=== PATIENT | female | born 1985 | race Caucasian/White ===

== ENCOUNTER → 2021-08-16 11:14 | Outpatient (CLI) | payer OTHER, SELFPAY ==
--- NOTE | 2021-08-16 | DI.RAD.S_ITS ---
PROCEDURE: FL BARIUM SWALLOW W SPEECH INDICATIONS: Dysphagia, unspecified COMPARISON: None. TECHNIQUE: Examination was conducted in conjunction with speech pathology per standard protocol. In the lateral projection, filming was performed of the patient swallowing. AP projection filming may also be performed with patient swallowing. COMPARISON: FINDINGS: Function: The oral preparatory phase appears normal, with proper containment. The subsequent oral propulsive phase, pharyngeal phase, and esophageal phase of swallowing also appear normal with all proffered substances. No laryngotracheal penetration or aspiration. No pathologic vallecular pooling. 13 millimeter barium tablet rapidly passed from the oral cavity to the stomach. Morphology: No cricopharyngeal bar is identified. No cervical esophageal webs. No Zenker's diverticulum. No strictures. IMPRESSION: Normal examination. Dictated by: Shasha Castellanos MD, PhD on 08/16/2021 at 14:38 Approved by: Shasha Castellanos MD, PhD on 08/16/2021 at 14:38
--- NOTE | 2021-08-16 17:10 | ST.SWALLOW ---
Visit Care Team Role Provider Type Lino Sanchez MD Attending Provider Physician Referring Provider Specialty: Ear, Nose, Throat Address: [address] [place] [address], [id number] Email: [email or web address] Modified Barium Swallow Study OBSTETRICS TECHNICIAN Modified Barium Swallow Study Start: 08/16/21 14:05 Freq: Status: Active Protocol: Document 08/16/21 14:10 LNK (Rec: 08/16/21 14:32 [id number] [id number]) Modified Barium Swallow Study Total Time Visit Start Time 11:30 Visit Stop Time 12:00 Total Visit Minutes 30 Referral Referring Physician SULEMA Rausch Reason for Referral difficulty with swallowing Setting Setting Outpatient Care Patient Information Identification Type Name,Date of Patient History Pt presented for a Modified Barium Swallow Study (MBSS) at the referral of Dr. Sanchez ENT. According to the pt, approximately 3 months ago, she had a choking experience during which she could not breathe, needing assistance fom her sister to dislodge the food (hamburger). Since that time, she reports she experiences a sensation of globus and increasing anxiety. She will eventually force herself to throw up in order to clear the sensation. She noted that she has difficulty with swallowing breads, spagetti, tomatoes, pizza, and chocolate. When she eats foods like these and or when she experiences difficulty swallowing, she stated she has a lot of mucous and it clogs me up. She has been drinking a lot water when she feels the foods stick in her throat, which, she reported, helps the food go down. She reports no difficulty with liquids. Pt also reported that she has heartburn a lot for which she takes Tums. She has not seen a physician for her heartburn. Subjective Observations Pt was seated in the fluoroscopy chair. Directions and procedure were described for her after which she agreed to proceed. Patient Positioning Position View Lat-A/P Imaging Lateral View Textures Administered Trials Presented Thin Liquid via Spoon,Thin Liquid via Cup,Pudding Thick Liquid via Spoon,Regular Textures Oral Phase Source: MBSIMP (TM) (C) Bolus Specific Scoring Grid Lip Closure No Impairment (WNL) Tongue Control During Bolus Hold No Impairment (WNL) Bolus Prep/Mastication No Impairment (WNL) Bolus Transport/Lingual Motion No Impairment (WNL) A/P Lingual Propulsion Delay No Oral Residue No Impairment (WNL) Residue Clearing No Impairment (WNL) Nasal Regurgitation No Additional Oral Phase Observations OME indicated structures and function to be WNL. P't dentition was natural in good hygiene. Diadochokineses was WNL. Pharyngeal Phase Source: MBSIMP (TM) (C) Bolus Specific Scoring Grid Delayed Initiation of Pharyngeal Swallow No Soft Palate Elevation No Impairment (WNL) Tongue Base Strength/Range of Motion Minimal Impairment Residue Along the Tongue Base No Laryngeal Elevation Mild Impairment Anterior Hyoid Movement Mild Impairment Epiglottic Range of Motion No Impairment (WNL) Vallecular Residue trace to minimal Clearance of Vallecular Residue WFL Laryngeal Vestibular Closure WFL Pharyngeal Stripping Wave No Impairment (WNL) Posterior Pharyngeal Wall Residue No Upper Esophageal Sphincter Opening Mild Impairment Residue in the Pyriform Sinuses No Esophageal Clearance Upright Position Mild Impairment Pharyngoesophageal Backflow Observed No Additional Pharyngeal Phase Observations Pt's pharyngeal phase of swallowing was essentially WFL with a slight reduction was of strength noted at pt's base of the tongue resulting in minimal residue within the valeculla. Spontaneous subsequent swallows cleared valecullar residue. Pt also demonstrated mildly reduced larygeal elevation and hyoid movement impacting the elevation of the UES. Reduced hyolaryngeal elevation directly impacts the opening size and duration of the UES. Epiglottic version was complete with a good seal of the airway. Cervical osteophytes were observed to narrow and alter the bolus flow without impeding the flow to the stomach. Pt demonstrated a very sensitive and hyperactive gag response to the paste and the cookie with paste trials, which increased her anxiety. She did complete the MBSS with minimal difficulty. A/P View Textures Administered Trials Presented Barium Tablet A/P View Observations Pharyngeal Contraction No Impairment (WNL) Vocal Fold Function Good Esophageal Function No Impairment (WNL) Esophageal Clearance Upright Position No Impairment (WNL) Clinical Impressions Dysphagia Type Mild dysphagia Findings Pt presents with mild pharyngeal dysphagia complicated by anxiety related to her swallowing. She has been drinking more water with her meals and says that the water helps reduce the sensation of globus. Mildly reduced hyolaryngeal elevation appears to be affecting the opening and duration of the UES, which may account for the pt thinking that something is stuck. No observation of slowness with esophageal emptying, no stasis was observed. Minimal residue within the pharynx was noted and cleared spontaneously. Base of tongue exercises could aid in hyolaryngeal elevation and the UES opening. Additionally, a referral to GI for evaluation of possible GERD is recommended. GERD could be related to the globus sensation as well. Finally, it may be that the pt's initial experience with choking and needing assistance has increased her anxiety with eating. Possible referral for counseling may help the pt as well. Rehabilitation Potential Good Patient Appropriate for Therapy Yes Recommendations Diet Comments Continue current diet Aspiration Precautions Recommended Precautions Alternate Liquids/Solids,Small Bites/Sips Treatment Plan Therapy Recommendations Outpatient Speech Therapy Recommended Referrals Primary Care Physician,GI Consult Additional Recommended Referrals counseling
--- NOTE | 2021-08-16 17:12 | ST.OPPOC ---
Physical, Occupational & Speech Therapy At [facility] Visit Care Team Role Provider Type Lino Sanchez MD Attending Provider Physician Referring Provider Address: [address] [place], [place] [address], [address] Speech Pathology Plan of Care Patient History Pt presented for a Modified Barium Swallow Study (MBSS) at the referral of Dr. Sanchez, ENT. According to the pt, approximately 3 months ago, she had a choking experience during which she could not breathe, needing assistance fom her sister to dislodge the food (hamburger). Since that time, she reports she experiences a sensation of globus and increasing anxiety. She will eventually force herself to throw up in order to clear the sensation. She noted that she has difficulty with swallowing breads, spagetti, tomatoes, pizza, and chocolate. When she eats foods like these and or when she experiences difficulty swallowing, she stated she has a lot of mucous and it clogs me up. She has been drinking a lot water when she feels the foods stick in her throat, which, she reported, helps the food go down. She reports no difficulty with liquids. Pt also reported that she has heartburn a lot for which she takes Tums. She has not seen a physician for her heartburn. Electronically Signed by: LUIS Weinstein 08/16/21 [id number] Please Sign and Return: I have reviewed this Plan of Care and certify that the skilled therapy services above are required to meet the patient?s needs. Physician Signature Date Printed Name and Credentials Clinical Instructor Signature Printed Name and Credentials
== END ==
PROVIDERS: Referring Provider Otolaryngology; Visit Provider Otolaryngology
DX: R13.10 Dysphagia, unspecified (principal)
CPT/HCPCS: 74230; 92611

== ENCOUNTER 2022-04-20 06:38 | Emergency (ER) | payer OTHER, SELFPAY ==
[2022-04-20] VITALS (9 sets, daily range): BP systolic 127–170; BP diastolic 59–89; PULSE 91–107; RESP 17; TEMP 36.7; O2SAT 92–96; BMI 49.6
[2022-04-20 07:15] LABS: Alanine Aminotransferase 36 IU/L (<35); Albumin 4.7 g/dL (3.5-5.0); Albumin Globulin Ratio 1.4 (1.0-2.8); Alkaline Phosphatase 57 U/L (38-126); Aspartate Aminotransferase 33 IU/L (14-36); BUN Creatinine Ratio 15.5 (6-22); Bilirubin Total 0.7 mg/dL (0.2-1.3); Blood Urea Nitrogen 11 mg/dL (7-17); Calcium 8.8 mg/dL (8.4-10.2); Carbon Dioxide 23 mmol/L (22-32); Chloride 104 mmol/L (98-107); Estimated Glomerular Filt Rate > 60 mL/min (>60); Globulin 3.3 g/dL (1.7-4.1); Glucose 128 mg/dL (70-100); HEMOLYSIS < 15 (0-50); Lipase 72 U/L (23-300); Potassium 3.9 mmol/L (3.4-5.1); Sodium 140 mmol/L (137-145)
--- NOTE | 2022-04-20 07:31 | ED.NAVMDI ---
HPI - Nausea/Vomiting/Diarrhea General Chief complaint: Nausea/Vomiting/Diarrhea Stated complaint: N/V/D, cough, chills, no food since monday Time Seen by Provider: 04/20/22 07:20 Source: patient Mode of arrival: Ambulatory Limitations: no limitations History of Present Illness HPI Narrative: The patient has been ill for 3 days. She presents with abdominal pain, nausea, vomiting diarrhea. She last had emesis was after arrival here. She has headache, no sore throat, no cough or dyspnea associated with the headache. She has no fever or chills. She does not complain of dyspnea or chest discomfort. She is status post cholecystectomy. She takes Zantac for dyspepsia. She has no urinary symptoms. She has no back pain, dysuria or hematuria. She is currently on her menstrual cycle. She does have urine output. She has not been around others with similar complaints. Related Data Previous Rx's Medication Instructions Recorded ibuprofen 600 mg tablet 600 mg PO Q6-8H PRN pain #60 tabs 04/20/22 ondansetron 4 mg disintegrating 4 mg PO Q4H PRN nausea and 04/20/22 tablet vomiting 5 days #20 tabs Allergies Allergy/AdvReac Type Severity Reaction Status Date / Time No Known Drug Allergies Allergy Verified 04/20/22 06:57 Review of Systems Constitutional Constitutional: Denies anorexia, Reports body ache(s), Denies chills, Reports fatigue, Denies fever(s) and Reports headache(s) Eyes Eyes: Denies blurry vision ENT Ears, Nose, Mouth, and Throat: Denies vertigo, Denies dizziness and Reports headache(s) Comments: No rhinorrhea, no sore throat, no ear discomfort. Cardiovascular Cardiovascular: Denies chest pain, Denies rapid heart rate and Denies dyspnea Respiratory Respiratory: Denies chest congestion, Denies cough and Denies dyspnea Gastrointestinal Gastrointestinal: Reports as per HPI Genitourinary Genitourinary: Reports as per HPI Musculoskeletal Musculoskeletal: Denies arthralgias and Denies back pain Integumentary/Breasts Skin/Breast: Denies lesions and Denies rash Neurologic Neurologic: Denies confusion, Denies vertigo, Denies dizziness and Reports headache(s) Psychiatric Psychiatric: Denies confusion Endocrine Endocrine: Reports fatigue Hematologic/Lymphatic On Anticoagulants: No Patient History Medical History (Updated 04/20/22 @ 12:26 by Terence Smith MD) GERD (gastroesophageal reflux disease) Surgical History (Updated 04/20/22 @ 07:38 by Terence Smith MD) S/P cholecystectomy Social History Smoking Status: Current some day smoker Smoking Status: Current some day smoker alcohol intake frequency: 0-2 drinks per day Substance Use Type: does not use Exam Initial Vital Signs Initial Vital Signs: Vital Signs Temperature 98.1 F 04/20/22 06:54 Pulse Rate 107 H 04/20/22 06:54 Respiratory Rate 17 04/20/22 06:54 Blood Pressure 170/89 H 04/20/22 06:54 Pulse Oximetry 94 04/20/22 06:54 Oxygen Delivery Method 04/20/22 06:54 Const General: cooperative and ill appearing Nutritional Appearance: obese HENMT Head: normal to inspection, normocephalic and atraumatic Mouth: oral mucosae normal Throat: posterior oropharynx normal Eyes General: Yes appearance normal, both eyes and all related structures Neck Neck: No lymphadenopathy Resp Effort & Inspection: normal respiratory effort Auscultation: clear to auscultation bilaterally Percussion: percussion normal Cardio Palpation: normal PMI Rate: regular rate Rhythm: regular rhythm Heart Sounds: S1 normal, S2 normal, no click, no murmurs and no rubs GI Inspection: normal to inspection Palpation: soft and tender (Mild RUQ tenderness without guarding rebound.) Auscultation: normal bowel sounds Back/Spine/Pelvis Back: No CVA tenderness Skin General: no rashes or lesions noted Neuro General: patient alert, patient awake, patient oriented x3 and no focal motor deficits Psych Appearance: grossly normal Course Course Course Narrative: Nausea, vomiting improved with IV fluids and Zofran. She is feeling significant better. CT discovered a 5.0 x 6.5 cm left ovarian cyst. Patient is clinically improved to discharge. She is discharged with Zofran. Motion should be used for abdominal pain. She is advised to follow-up with PCM for further evaluation of the ovarian cyst. Orders Ordered: Discontinued Medications Sodium Chloride (Normal Saline 0.9%) 500 mls @ 1,000 mls/hr IV BOLUS PRN PRN Reason: Fluid replacement Sodium Chloride (Normal Saline 0.9%) 1,000 mls @ 1,000 mls/hr IV BOLUS ONE Stop: 04/20/22 08:38 Last Infusion: 04/20/22 09:28 Dose: 0 mls/hr Documented By: Admin: 04/20/22 07:40 Dose: 1,000 mls/hr Documented By: DIEUDONNE Sodium Chloride (Normal Saline 0.9%) 1,000 mls @ 1,000 mls/hr IV BOLUS PRN PRN Reason: Fluid replacement Last Infusion: 04/20/22 11:50 Dose: 0 mls/hr Documented By: Admin: 04/20/22 10:20 Dose: 1,000 mls/hr Documented By: DIEUDONNE Ketorolac Tromethamine (Ketorolac 30 Mg/Ml Vial) 30 mg IV NOW ONE Stop: 04/20/22 10:01 Last Admin: 04/20/22 10:17 Dose: 30 mg Documented By: DIEUDONNE Ondansetron HCl (Ondansetron 4 Mg/2 Ml Inj) 4 mg IV NOW ONE Stop: 04/20/22 07:30 Last Admin: 04/20/22 07:38 Dose: 4 mg Documented By: [facility] Vital Signs Vital signs: Vital Signs - 8 hr 04/20/22 06:54 Temperature 98.1 F Pulse Rate 107 H Respiratory Rate 17 Blood Pressure 170/89 H Pulse Oximetry 94 Oxygen Delivery Method Room Air MDM - Nausea/Vomiting/Diarrhea Lab Data Result diagrams: 04/20/22 06:55 04/20/22 06:55 Labs: Lab Results 04/20/22 04/20/22 Range/Units 06:55 06:55 WBC 4.7 (4.5-11.0) X10^3/uL RBC 4.99 (4.0-5.2) X10^6/uL Hgb 12.9 (12.0-16.0) g/dL Hct 38.8 (36-46) % MCV 77.7 L (80-100) fL MCH 25.8 L (26-34) PG MCHC 33.2 (30-36) % RDW 14.3 (11.6-14.8) % Plt Count 222 (150-400) X10^3/uL Neut % (Auto) 75.9 H (50-75) % Lymph % (Auto) 11.1 L (25-40) % [place] % (Auto) 11.1 (3-14) % Eos % (Auto) 1.7 L (2-4) % Baso % (Auto) 0.2 (0-2) % Neut # (Auto) 3500 (8508-2374) /uL Lymph # (Auto) 500 L (8567-0582) /uL [place] # (Auto) 500 (0-900) /uL Eos # (Auto) 100 (0-450) /uL Baso # (Auto) 0 (0-100) /uL Sodium 140 (137-145) mmol/L Potassium 3.9 (3.4-5.1) mmol/L Chloride 104 (98-107) mmol/L Carbon Dioxide 23 (22-32) mmol/L BUN 11 (7-17) mg/dL Creatinine 0.71 (0.52-1.04) mg/dL Estimated GFR > 60 (>60) mL/min BUN/Creatinine Ratio 15.5 (6-22) Glucose 128 H (70-100) mg/dL Calcium 8.8 (8.4-10.2) mg/dL Total Bilirubin 0.7 (0.2-1.3) mg/dL AST 33 (14-36) IU/L ALT 36 H (<35) IU/L Alkaline Phosphatase 57 (38-126) U/L Total Protein 8.0 (6.3-8.2) g/dL Albumin 4.7 (3.5-5.0) g/dL Globulin 3.3 (1.7-4.1) g/dL Albumin/Globulin Ratio 1.4 (1.0-2.8) Lipase 72 (23-300) U/L Point of Care Testing Test Results Negative Urine Dip Bedside Urine Glucose Negative Bedside Urine Bilirubin - Negative Bedside Urine Ketone - Negative Urine Specific [place] 1.015 Bedside Urine Occult Blood +++ Bedside Urine pH 8.0 Bedside Urine Protein + 30 Bedside Urine Urobilinogen +/- 1mg Bedside Urine Nitrite - Negative Bedside Urine Leukocytes ++ [address] scan - abdomen/pelvis: Radiologist's Impression: Mik Brewster S??37??F??1985 ? Allergy/Adv: No Known Drug Allergies (More??) Close Abdomen/Pelvis CT (Signed) Eliezer Saucedo - 04/20/22 Modified Barium Swallow (Signed) Shasha Castellanos - 08/16/21 Launch?[place] [address] CT Scan Report Signed Patient: Mik Brewster MR#: [id number] : 1985 Acct:[id number] Age/Sex: 37 / F Date of Service: 04/20/22 Loc: ED Accession Number: [id number] ?? Procedure: CT abdomen pelvis w con Ordering Provider: Terence Smith MD PROCEDURE:? CT ABDOMEN PELVIS W CON ? INDICATIONS:? left lower quad pain ? TECHNIQUE:? After the administration of oral and IV contrast, axial sections were acquired from the lung bases to the pubic symphysis.? Coronal and sagittal reformats were performed.? For radiation dose reduction, the following was used:? automated exposure control, adjustment of mA and/or kV according to patient size. ? COMPARISON:? None. ? FINDINGS:? Image quality:? Excellent.? ? Lung bases:? Lung bases are clear.? Tiny hiatal hernia.? ? Heart:? No significant findings. ? ? ABDOMEN: Liver:? Moderately enlarged.? Moderate hepatic steatosis.? ? Gallbladder:? Surgically absent.? ? Biliary ducts:? Unremarkable.? ? Pancreas:? Unremarkable.? ? Spleen:? Borderline enlarged measuring 13 cm.? ? Adrenal Glands:? Unremarkable.? ? Kidneys and Ureters:? Unremarkable.? ? ? Stomach and Bowel:? Stomach, small bowel loops, and colon are normal in caliber.? Normal appendix..? Peritoneum:? No abnormal intraperitoneal fluid.? No free air.? ? Ventral Wall: ? No hernia.? Abdominal Nodes:? No retroperitoneal or mesenteric adenopathy by size criteria.? Vessels:? Aorta and inferior vena cava are normal in size.? ? PELVIS: Pelvic Organs:? There is a 5.0 x 6.5 cm left ovarian.? Right ovary is normal.? Uterus is unremarkable.? Fluid within the uterine cavity is likely related to menses.? No free fluid in the cul-de-sac or adnexa. Bladder:? Unremarkable.? ? Pelvic Nodes: No enlarged lymph nodes.? Miscellaneous: No inguinal hernias are seen. ? ? ? Bones:? Unremarkable.? IMPRESSION:? ? 1. There is a large 5.0 x 6.5 cm cyst in the left ovary.? A pelvic ultrasound follow-up is suggested. ? 2. Mild hepatosplenomegaly.? There is moderate hepatic steatosis. ? ? The result was discussed with Dr. Smith. ? Dictated by: Laura Saucedo M.D. on 04/20/2022 at 10:50? ?? Discharge Plan Departure Patient Disposition: Home Clinical Impression: Nausea and vomiting, Cyst of left ovary Instructions: DI for Viral Gastroenteritis -- Adult, DI for Ovarian Cyst Activity Restrictions/Additional Instructions: Zofran every 4 hours as needed for nausea. You should be drinking plenty of fluids, you should initially be on a bland diet. Advance your diet as tolerated. You have a large left ovarian cyst. [place] ovarian ultrasound is recommended. Return here as needed. Prescriptions: New ibuprofen 600 mg tablet 600 mg PO Q6-8H PRN (Reason: pain) Qty: 60 0RF ondansetron 4 mg tablet,disintegrating 4 mg PO Q4H PRN (Reason: nausea and vomiting) 5 Days Qty: 20 0RF Rx Instructions: give 1st dose 30min before emetogenic chemo Visit Report Forms: Patient Portal/API
[2022-04-20] MEDS: ONDANSETRON 4 MG/2 ML INJ IV (07:38)
[2022-04-20] MEDS: SODIUM CHLORIDE 0.9% 1,000 ML 1000 ML IV ×2 (07:40→10:20)
[2022-04-20 07:47] LABS: Add Manual Diff / Slide Review NO; Basophils Absolute Auto 0 /uL (0-100); Basophils Percent Auto 0.2 % (0-2); Eosinophils Absolute Auto 100 /uL (0-450); Eosinophils Percent Auto 1.7 % (2-4); Hematocrit 38.8 % (36-46); Hemoglobin 12.9 g/dL (12.0-16.0); Lymphocytes Absolute Auto 500 /uL (1100-4500); Lymphocytes Percent Auto 11.1 % (25-40); Mean Corpuscular HGB Conc 33.2 % (30-36); Mean Corpuscular Hemoglobin 25.8 PG (26-34); Mean Corpuscular Volume 77.7 fL (80-100); Monocytes Absolute Auto 500 /uL (0-900); Monocytes Percent Auto 11.1 % (3-14); Neutrophils Absolute Auto 3500 /uL (1500-7000); Neutrophils Percent Auto 75.9 % (50-75); Platelet Count 222 X10^3/uL (150-400); Red Blood Cell Count 4.99 X10^6/uL (4.0-5.2); Red Cell Distribution Width 14.3 % (11.6-14.8); White Blood Cell Count 4.7 X10^3/uL (4.5-11.0)
[2022-04-20] MEDS: KETOROLAC 30 MG/ML VIAL IV (10:17)
--- NOTE | 2022-04-20 10:34 | DI.CT.S_ITS ---
PROCEDURE: CT ABDOMEN PELVIS W CON INDICATIONS: left lower quad pain TECHNIQUE: After the administration of oral and IV contrast, axial sections were acquired from the lung bases to the pubic symphysis. Coronal and sagittal reformats were performed. For radiation dose reduction, the following was used: automated exposure control, adjustment of mA and/or kV according to patient size. COMPARISON: None. FINDINGS: Image quality: Excellent. Lung bases: Lung bases are clear. Tiny hiatal hernia. Heart: No significant findings. ABDOMEN: Liver: Moderately enlarged. Moderate hepatic steatosis. Gallbladder: Surgically absent. Biliary ducts: Unremarkable. Pancreas: Unremarkable. Spleen: Borderline enlarged measuring 13 cm. Adrenal Glands: Unremarkable. Kidneys and Ureters: Unremarkable. Stomach and Bowel: Stomach, small bowel loops, and colon are normal in caliber. Normal appendix.. Peritoneum: No abnormal intraperitoneal fluid. No free air. Ventral Wall: No hernia. Abdominal Nodes: No retroperitoneal or mesenteric adenopathy by size criteria. Vessels: Aorta and inferior vena cava are normal in size. PELVIS: Pelvic Organs: There is a 5.0 x 6.5 cm left ovarian. Right ovary is normal. Uterus is unremarkable. Fluid within the uterine cavity is likely related to menses. No free fluid in the cul-de-sac or adnexa. Bladder: Unremarkable. Pelvic Nodes: No enlarged lymph nodes. Miscellaneous: No inguinal hernias are seen. Bones: Unremarkable. IMPRESSION: 1. There is a large 5.0 x 6.5 cm cyst in the left ovary. A pelvic ultrasound follow-up is suggested. 2. Mild hepatosplenomegaly. There is moderate hepatic steatosis. The result was discussed with Dr. Smith. Dictated by: Laura Saucedo M.D. on 04/20/2022 at 10:50 Approved by: Laura Saucedo M.D. on 04/20/2022 at 11:22
== END 2022-04-20 12:39 | disposition home or self-care (01) ==
PROVIDERS: Emergency Medicine; Emergency Provider Emergency Medicine
DX: N83.202 Unspecified ovarian cyst, left side (principal); R11.2 Nausea with vomiting, unspecified; R19.7 Diarrhea, unspecified; R51.9 Headache, unspecified
CPT/HCPCS: 36415; 74177; 80053; 81003; 81025; 83690; 85025; 96361; 96374; 96375; 99284; J1885; J2405